=== PATIENT | male | born 1980 | race Caucasian/White ===

== ENCOUNTER 2016-07-05 09:51 | Day surgery (SDC) | payer BC ==
[~2016-07-05] VITALS: Ht 170.2 cm; Wt 99.8 kg
[2016-07-05 09:50] VITALS: O2SAT 97
[~2016-07-05 09:51] MED LIST: CEFAZOLIN 1 GM IVPB PREMIX 50 ML IV ONE
[2016-07-05] MEDS ORDERED: SEVOFLURANE 15 MIN GAS INH ONE (14:00)
[2016-07-05] MEDS ORDERED: PROPOFOL 200MG/ 20ML VIAL (DIPRIVAN) IV ONE (14:00)
[2016-07-05] MEDS ORDERED: ROCURONIUM BROMIDE 10 MG/ML (ZEMURON) ONE (14:00)
[2016-07-05] MEDS ORDERED: fentaNYL CITRATE/PF 100 MCG/2 ML AMP ONE (14:00)
[2016-07-05] MEDS ORDERED: NS IRRIG SOLN 1000 ML IR ONE (14:00)
[2016-07-05] MEDS ORDERED: MIDAZOLAM HCL 5 MG/5 ML VIAL ONE (14:00)
[2016-07-05] MEDS ORDERED: ONDANSETRON HCL 4 MG/2 ML VIAL ONE (14:00)
[2016-07-05] MEDS ORDERED: LR 1,000 ML IV SCH (15:07)
[2016-07-05] MEDS ORDERED: HYDROcodone/ACETAMIN 5-325 MG TAB (NORCO/ VICODIN) PO PRN ×2 (15:15)
[2016-07-05] MEDS ORDERED: HYDROmorphone 1 MG INJ. 1 MG/ML AMPUL IVP PRN (15:15)
[2016-07-05] MEDS ORDERED: MORPHINE 2 MG/ML INJ. SYRINGE IVP PRN ×3 (15:15)
[2016-07-05] MEDS ORDERED: METOCLOPRAMIDE HCL 10 MG/2 ML VIAL IVP PRN (15:15)
[2016-07-05 15:55] VITALS: BP 117/76; PULSE 51; RESP 16
[2016-07-05] MEDS ORDERED: D5/0.45 NS 1,000 ML IV SCH (18:15)
== END 2016-07-05 17:10 | disposition home or self-care (01) ==
LOC: SMU 09:51 → SDS 09:51
PROVIDERS: ATTEND Colon & Rectal Surgery
DX: K60.3 Anal fistula (principal); E66.01 Morbid (severe) obesity due to excess calories; F17.210 Nicotine dependence, cigarettes, uncomplicated
CPT/HCPCS: 45300; 46275; J0690; J2250; J2405; J2704; J3010; J7120